=== PATIENT | female | born 1985 | race Two or more races ===

== ENCOUNTER 2024-05-15 09:17 | Outpatient (CLI) | payer OTHER | END 2024-05-15 09:57 | disposition home or self-care (01) | LOC: NST 09:17 | PROVIDERS: ATTEND Obstetrics & Gynecology Maternal & Fetal Medicine | DX: Z34.83 Encounter for supervision of other normal pregnancy, third trimester (principal) ==

== ENCOUNTER 2024-05-15 14:45 | Inpatient (IN) | payer OTHER ==
[~2024-05-15] VITALS: Ht 165.1 cm; Wt 4.1 kg
[2024-05-28 15:48] VITALS: BP 119/79
[2024-05-28 16:29] LABS: HEMATOCRIT 34.6 % (36.0-45.00); HEMOGLOBIN 11.3 g/dL (12.0-15.00); MEAN CELL VOLUME 92.4 fL (80.00-100.00); MEAN CORPUSCULAR HEMOGLOBIN 30.3 pg (27.00-32.0); MEAN CORPUSCULAR HGB CONC 32.7 g/dl (32.0-36.0); PLATELET COUNT 199 K/uL (150-450); RED BLOOD COUNT 3.74 M/uL (4.00-6.00); RED CELL DISTRIBUTION WIDTH 15.1 % (11.5-14.5)
[2024-05-28] MEDS ORDERED: PRENATABS RX T1 EACH PO (16:29)
[2024-05-28] MEDS ORDERED: SYNTHROID100 MCG PO (16:30)
[2024-05-28 16:56] LABS: INR 0.98; PARTIAL THROMBOPLASTIN TIME 27.3 SECONDS (22.0-34.0); PROTHROMBIN TIME 10.7 SECONDS (9.0-11.5)
[2024-05-28 17:31] LABS: ALBUMIN 2.6 gm/dL (3.4-5.0); BILIRUBIN TOTAL 0.33 mg/dL (0.3-1.2); CALCIUM 8.8 mg/dL (8.5-10.1); CREATININE SERUM 0.59 mg/dL (0.55-1.02); GFR 113.47; GLOBULINA 3.6 G/DL (2.4-3.5); POTASSIUM 3.94 mEq/L (3.5-5.1); T4 FREE 0.99 NG/ML (0.76-1.46); TOTAL PROTEIN 6.2 gm/dL (6.4-8.2); TSH 4.43 uIU/mL (0.358-3.74)
[2024-05-28 19:21] VITALS: BP 103/52
[2024-05-28 23:52] VITALS: BP 105/54
[2024-05-29 03:48] VITALS: BP 127/76
[2024-05-29] MEDS ORDERED: LEVOTHYROXINE SODIUM 100 MCG TABLET PO SCH (06:00)
[2024-05-29 07:48] VITALS: BP 107/70
[2024-05-29] MEDS ORDERED: OXYTOCIN 500 ML IV ONE (08:00)
[2024-05-29] MEDS ORDERED: MISOPROSTOL 25 MCG TABLET VAG ONE (10:00)
[2024-05-29 11:47] VITALS: BP 96/55
[2024-05-29 15:35] VITALS: BP 110/69
[2024-05-29] MEDS ORDERED: MORPHINE SULFATE 4 MG/ML CARTRIDGE IV ONE (18:00)
[2024-05-29 20:23] VITALS: BP 97/59
[2024-05-29] MEDS ORDERED: MORPHINE SULFATE 4 MG/ML VIAL IV SCH (22:10)
[2024-05-29] MEDS ORDERED: OXYTOCIN 1,000 ML IV ONE (22:15)
[2024-05-30] MEDS ORDERED: KETOROLAC TROMETHAMINE 30 MG VIAL IV SCH
[2024-05-30] MEDS ORDERED: ERYTHROMYCIN BASE OPHT 1GM EACH TUBE OP ONE (01:15)
[2024-05-30] MEDS ORDERED: OXYTOCIN 10 UNITS/ML VIAL IV ONE (01:15)
[2024-05-30] MEDS ORDERED: ACETAMINOPHEN 500 MG GEL..CAP PO SCH (06:00)
[2024-05-30 06:13] VITALS: BP 108/56
[2024-05-30 06:25] LABS: HEMATOCRIT 31.2 % (36.0-45.00); HEMOGLOBIN 10.4 g/dL (12.0-15.00); MEAN CELL VOLUME 91.5 fL (80.00-100.00); MEAN CORPUSCULAR HEMOGLOBIN 30.5 pg (27.00-32.0); MEAN CORPUSCULAR HGB CONC 33.3 g/dl (32.0-36.0); PLATELET COUNT 174 K/uL (150-450); RED CELL DISTRIBUTION WIDTH 15.3 % (11.5-14.5)
[2024-05-30 08:45] VITALS: BP 110/53
[2024-05-30] MEDS ORDERED: SIMETHICONE 125 MG CAPSULE PO SCH (09:00)
[2024-05-30] MEDS ORDERED: GABAPENTIN 300 MG CAPSULE PO SCH (09:00)
[2024-05-30] MEDS ORDERED: DOCUSATE SODIUM 100MG CAP PO SCH (09:00)
[2024-05-30] MEDS ORDERED: PNV,CALCIUM 72/IRON/FOLIC ACID 1 TAB TABLET PO SCH (09:00)
[2024-05-30] MEDS ORDERED: IBUprofen 600 MG TABLET PO SCH (12:00)
[2024-05-30] MEDS ORDERED: KETOROLAC TROMETHAMINE 10 MG TABLET PO SCH (12:00)
[2024-05-30 16:54] VITALS: BP 107/62
[2024-05-31 01:43] VITALS: BP 110/68; O2SAT 99
[2024-05-31] MEDS ORDERED: OxyCODONE HCL/APAP UD (PERCOCET) PO SCH (09:00)
[2024-05-31 09:38] VITALS: BP 115/77; O2SAT 97
[2024-05-31 16:00] VITALS: BP 128/78
[2024-06-01 00:53] VITALS: BP 102/67; O2SAT 98
[2024-06-01 08:32] VITALS: BP 121/75; O2SAT 98
== END 2024-06-01 12:32 | disposition home or self-care (01) | DRG 788 ==
LOC: EDUNIT# 14:45 → SURG 05-21 14:45 → LDR 05-28 14:02 → OB/GYN 05-28 14:56 → LDR 05-28 16:18 → OB/GYN 05-30 03:47
PROVIDERS: Obstetrics & Gynecology; Obstetrics & Gynecology Gynecology; ADMIT Obstetrics & Gynecology; ATTEND Obstetrics & Gynecology
PROC: 3E033VJ Introduction of Other Hormone into Peripheral Vein, Percutaneous Approach (ICD-10-PCS; 2024-05-28)
PROC: 3E0P7VZ Introduction of Hormone into Female Reproductive, Via Natural or Artificial Opening (ICD-10-PCS; 2024-05-28)
PROC: 4A1HXCZ Monitoring of Products of Conception, Cardiac Rate, External Approach (ICD-10-PCS; 2024-05-28)
PROC: 10D00Z1 Extraction of Products of Conception, Low, Open Approach (ICD-10-PCS; principal; 2024-05-29 19:15)
DX: O82 Encounter for cesarean delivery without indication (principal); O62.1 Secondary uterine inertia; Z3A.40 40 weeks gestation of pregnancy; Z37.0 Single live birth; Z20.822 Contact with and (suspected) exposure to COVID-19

== ENCOUNTER 2024-05-21 08:35 | Outpatient (CLI) | payer OTHER | END 2024-05-21 09:30 | disposition home or self-care (01) | LOC: NST 08:35 | PROVIDERS: ATTEND Obstetrics & Gynecology Maternal & Fetal Medicine | DX: Z34.83 Encounter for supervision of other normal pregnancy, third trimester (principal) ==

== ENCOUNTER 2024-05-24 08:20 | Outpatient (CLI) | payer OTHER | END 2024-05-24 09:33 | disposition home or self-care (01) | LOC: NST 08:20 | PROVIDERS: ATTEND Obstetrics & Gynecology Maternal & Fetal Medicine | DX: Z34.83 Encounter for supervision of other normal pregnancy, third trimester (principal) ==

== ENCOUNTER 2024-05-27 11:40 | Outpatient (CLI) | payer OTHER ==
[2024-05-28] MEDS ORDERED: PRENATABS RX T1 EACH PO (16:29)
[2024-05-28] MEDS ORDERED: SYNTHROID100 MCG PO (16:30)
== END 2024-05-27 13:01 | disposition home or self-care (01) ==
LOC: NST 11:40
PROVIDERS: ATTEND Obstetrics & Gynecology Maternal & Fetal Medicine
DX: Z34.83 Encounter for supervision of other normal pregnancy, third trimester (principal)